=== PATIENT | female | born 1955 | race Caucasian/White ===

== ENCOUNTER → 2019-07-04 | Outpatient (CLI) | payer MEDICARE, OTHER ==
[~2019-07-04] MED LIST: ALPR.25T PO; ATEN-158 PO; CIPR-17 PO; CPR500T PO; ESOM20CA PO; FRSM40T; KCL10CCR; LACT1CAP62 PO; LEVO137T24 PO; LEVO500T69 PO; LVT.15T; METF-380 PO; METR500T PO; MULT1TAB63; OMEP-10; OMEP-10 PO; PRX20T PO; TERB250T42 PO; TRAM-21 PO; TRHC5025; TRIA1CAP4 PO; VERAMYST
== END ==
LOC: RAD 09:49
PROVIDERS: ATTEND Internal Medicine
DX: Z12.31 Encounter for screening mammogram for malignant neoplasm of breast (principal)
CPT/HCPCS: 77063; 77067

== ENCOUNTER → 2019-09-28 | Outpatient (CLI) | payer MEDICARE, OTHER ==
--- NOTE | 2019-09-28 17:53 | Diagnostic Imaging Report ---
INDICATION: Degenerative disc disease. FINDINGS: Frontal, lateral and bilateral oblique views of the lumbar spine demonstrate no fracture or subluxation. Disc space narrowing is present at all levels. This is greatest at L1-L2, L2-L3 and L5-S1. Facet arthropathy is seen at all levels, greatest at L4-L5 and L5-S1. No pars defects are present. IMPRESSION: There is diffuse spondylosis. No acute finding is identified. Dictated by: Dictated on workstation # [id number]
--- NOTE | 2019-09-28 17:54 | Diagnostic Imaging Report ---
INDICATION: Neck pain and low back pain. EXAMINATION: Cervical spine, 09/28/2019. FINDINGS: Five views of the cervical spine. There is marked intervertebral disc space narrowing at C4-C5 and to a lesser degree throughout the remaining cervical spine. Anterior and posterior spurring throughout the entire spine is also noted. There are no significant subluxation. No vertebral body height loss. The prevertebral soft tissues appear unremarkable. There is multilevel diffuse facet hypertrophy at all levels. Visualized lung apices are clear. IMPRESSION: Multilevel severe degenerative disease. Dictated by: Dictated on workstation # [id number]
== END ==
LOC: RAD 16:21
PROVIDERS: ATTEND Internal Medicine
DX: M51.36 Other intervertebral disc degeneration, lumbar region (principal); M47.816 Spondylosis without myelopathy or radiculopathy, lumbar region; M47.812 Spondylosis without myelopathy or radiculopathy, cervical region; M99.01 Segmental and somatic dysfunction of cervical region
CPT/HCPCS: 72050; 72110

== ENCOUNTER → 2019-10-10 | Outpatient (CLI) | payer MEDICARE, OTHER ==
--- NOTE | 2019-10-10 14:56 | Diagnostic Imaging Report ---
PROCEDURE: MR imaging cervical spine without contrast. TECHNIQUE: Multiplanar, multisequence MR imaging of the cervical spine was performed without contrast. INDICATION: Neck pain. FINDINGS: There is straightening of the normal cervical lordosis. The vertebral body heights are well maintained. Prevertebral soft tissues are within normal limits. Posterior fossa is unremarkable. The visualized portions of the spinal cord are normal in signal intensity and morphology. At C2-C3, there is some annular bulging and bilateral uncovertebral joint hypertrophy. There is mild spinal stenosis. There is moderate right and mild left neuroforaminal encroachment. At C3-C4, there is broad-based annular bulging and bilateral uncovertebral joint hypertrophy. There is uhjl-dl-prbnuxdu spinal stenosis. There is moderate left and mild right neuroforaminal encroachment. At C4-C5, there is annular bulging and bilateral uncovertebral joint hypertrophy. There is severe spinal stenosis and moderately severe bilateral neuroforaminal encroachment. At C5-C6, there is annular bulging and bilateral uncovertebral joint hypertrophy. There is moderately severe spinal stenosis and moderate right and oryi-tj-gpxvqquz left neuroforaminal encroachment. At C6-C7, there is annular bulging and left uncovertebral joint hypertrophy. There is qezq-rh-ufukqctl spinal stenosis and pbczrpeu-dm-jmbemz left neuroforaminal encroachment. At C7-T1, there is no spinal or neuroforaminal encroachment. IMPRESSION: Moderately severe diffuse cervical spondylosis and multilevel degenerative disc disease. Dictated by: Dictated on workstation # [id number]
--- NOTE | 2019-10-10 15:14 | Diagnostic Imaging Report ---
PROCEDURE: MRI lumbar spine. TECHNIQUE: Multiplanar, multisequence MRI of the lumbar spine was performed without contrast. INDICATION: Back pain with no known injury. FINDINGS: There is some slight retrolisthesis of L1 on L2 and L2 on L3. The vertebral body heights are relatively well-maintained. There are no acute fractures. The conus medullaris is seen at L1 and is normal in appearance. At T12-L1, there is no spinal or neuroforaminal encroachment. At L1-L2, there is loss of disc height and signal intensity. There is some annular bulging and Modic changes in the endplates. There is no significant spinal stenosis although there is some moderate bilateral neuroforaminal encroachment. At L2-L3, there is loss of disc height and signal intensity. There is minimal annular bulging. There is at least moderate bilateral neuroforaminal encroachment. At L3-L4, there is a left paramedian disc protrusion resulting in slight effacement of the ventral thecal sac. There is also some facet disease with moderate bilateral neuroforaminal encroachment. At L4-L5, there is loss of disc height and signal intensity. There are some Modic changes in the endplates. There is moderate bilateral neuroforaminal encroachment. At L5-S1, there is mild annular bulging. There is mild bilateral neuroforaminal encroachment. The aorta is nonaneurysmal. The kidneys are normal in appearance. IMPRESSION: Diffuse lumbar spondylosis and multilevel degenerative disc disease as described. Dictated by: Dictated on workstation # [id number]
== END ==
LOC: RAD 12:55
PROVIDERS: ATTEND Internal Medicine
DX: M51.36 Other intervertebral disc degeneration, lumbar region (principal); M47.816 Spondylosis without myelopathy or radiculopathy, lumbar region; M47.812 Spondylosis without myelopathy or radiculopathy, cervical region; M50.30 Other cervical disc degeneration, unspecified cervical region; M99.01 Segmental and somatic dysfunction of cervical region
CPT/HCPCS: 72141; 72148

== ENCOUNTER → 2020-10-11 | Outpatient (CLI) | payer MEDICARE, OTHER ==
--- NOTE | 2020-10-11 13:14 | Diagnostic Imaging Report ---
PROCEDURE: MRI lumbar spine. TECHNIQUE: Multiplanar, multisequence MRI of the lumbar spine was performed without contrast. DATE: October 11, 2020. COMPARISON: Lumbar spine October 10, 2019. INDICATION: 65-year-old female, low back pain extending down the right lower extremity. FINDINGS: There is normal lumbosacral spine alignment. There is a benign L1 vertebral body hemangioma. There is no focal concerning bone lesion. There is moderate to severe disc height loss at L1-L2 and L2-L3. There is mild disc loss at L3-L4 and L4-L5. There is moderate disc height loss at L5-S1. There are multilevel Modic endplate degenerative related changes of the lumbar spine. The visualized cord and conus medullaris is unremarkable and terminates at the L1 level. L1-L2: There is diffuse disc bulge. There is moderate narrowing of the right lateral recess and mild narrowing of the left lateral recess. The facet joints and ligamentum flavum are unremarkable. There is moderate right foraminal narrowing. There is very mild spinal canal stenosis. L2-L3: There is diffuse disc bulge. There are mild bilateral facet degenerative changes. There is mild to moderate narrowing of the bilateral lateral recesses. There is moderate bilateral foraminal narrowing. There is mild spinal canal stenosis. L3-L4: There is diffuse disc bulge. There is moderate narrowing of the bilateral lateral recesses. There are bilateral facet degenerative changes. There is moderate right and mild left foraminal narrowing. There is moderate to severe spinal canal stenosis. L4-L5: There is diffuse disc bulge. There are advanced facet degenerative changes with ligamentum flavum hypertrophy. There is severe narrowing of the bilateral lateral recesses. There is moderate bilateral foraminal narrowing. There is severe spinal canal stenosis. L5-S1: There is diffuse disc bulge. The facet joints and ligamentum flavum are unremarkable. There is no foraminal narrowing. There is no spinal canal stenosis. IMPRESSION: 1. Multilevel disc and facet degenerative changes of the lumbar spine as described in detail level by level above. 2. No identified compression deformity, fracture, or focal concerning bone lesion. Dictated by: Dictated on workstation # [id number]
== END ==
LOC: RAD 10:15
PROVIDERS: ATTEND Pediatrics
DX: M47.816 Spondylosis without myelopathy or radiculopathy, lumbar region (principal); M51.26 Other intervertebral disc displacement, lumbar region; M51.36 Other intervertebral disc degeneration, lumbar region; M48.061 Spinal stenosis, lumbar region without neurogenic claudication; D18.09 Hemangioma of other sites; M24.28 Disorder of ligament, vertebrae
CPT/HCPCS: 72148

== ENCOUNTER 2021-01-16 08:29 | Outpatient (CLI) | payer MEDICARE, OTHER ==
[~2021-01-16] VITALS: Ht 170.2 cm; Wt 92.3 kg
[2021-01-17] MEDS ORDERED: METF-399 PO (08:56)
[2021-01-17] MEDS ORDERED: LEVO125C4 PO (08:56)
[2021-01-17] MEDS ORDERED: NF-ESOM40C PO (08:56)
[2021-01-17] MEDS ORDERED: ALPR0.5T7 PO (08:56)
[2021-01-17] MEDS ORDERED: ATEN50TA PO (08:56)
[2021-01-17] MEDS ORDERED: MELO15TA39 PO (08:56)
[2021-01-17] MEDS ORDERED: POLY17PO6 PO (08:56)
[2021-01-17] MEDS ORDERED: FLUT16SP22 NS (08:56)
[2021-01-17] MEDS ORDERED: TETR15DR49 OP (08:56)
== END 2021-01-17 12:16 | disposition home or self-care (01) ==
LOC: PREOP 08:29
PROVIDERS: ATTEND Surgery
DX: Z01.818 Encounter for other preprocedural examination (principal)

== ENCOUNTER 2021-01-23 11:01 | Day surgery (SDC) | payer MEDICARE, OTHER ==
[~2021-01-23] VITALS: Ht 170.2 cm; Wt 92.3 kg
[~2021-01-23 11:01] MED LIST changes: +ALPR0.5T7 PO; +ATEN50TA PO; +FLUT16SP22 NS; +LEVO125C4 PO; +MELO15TA39 PO; +METF-399 PO; +NF-ESOM40C PO; +POLY17PO6 PO; +TETR15DR49 OP
[2021-01-23] MEDS ORDERED: LACTATED RINGERS 1,000 ML IV ONE (11:11)
[2021-01-23] MEDS ORDERED: LACTATED RINGERS 1,000 ML IV STA (11:20)
[2021-01-23 11:35] VITALS: BP 157/79
--- NOTE | 2021-01-23 12:13 | Progress Note-Pre Operative ---
Pre-Operative Progress Note H&P Reviewed The H&P was reviewed, patient examined and no changes noted. Date Seen by Provider: Jan 23, 2021 Time Seen by Provider: 12:13 Date H&P Reviewed: Jan 23, 2021 Time H&P Reviewed: 12:13 Pre-Operative Diagnosis: hx diverticulitis, llq abd pain ASAF GAITAN DO Jan 23, 2021 12:13
[2021-01-23] MEDS ORDERED: MIDAZOLAM 2 MG/2 ML (VERSED) VIAL ONE (12:29)
[2021-01-23] MEDS ORDERED: PROPOFOL INJECTION 50 ML IV ONE (12:29)
--- NOTE | 2021-01-23 13:02 | Progress Note-Post Operative ---
Post-Operative Progess Note Surgeon (s)/Stringed Instrument Repairer (s) Surgeon ASAF GAITAN DO Stringed Instrument Repairer: na Pre-Operative Diagnosis hx diverticulitis, llq abd pain Post-Operative Diagnosis Diverticulosis Procedure & Operative Findings Date of Procedure 01/23/21 Procedure Performed/Findings Colonoscopy Anesthesia Type Per CONCRETER Estimated Blood Loss Estimated blood loss (mL): None Specimens/Packing Specimens Removed N/A ASAF GAITAN DO Jan 23, 2021 13:02
--- NOTE | 2021-01-23 13:04 | Anesthesia-General Post-Op ---
MAC Patient Condition Mental Status/LOC: Same as Preop Cardiovascular: Satisfactory Nausea/Vomiting: Absent Respiratory: Satisfactory Pain: Controlled Complications: Absent Post Op Complications Complications None Follow Up Care/Instructions Patient Instructions None needed. Anesthesiology Discharge Order Discharge Order Patient is doing well, no complaints, stable vital signs, no apparent adverse anesthesia problems. No complications reported per nursing. JEANETTE STONE CRNA Jan 23, 2021 13:04
--- NOTE | 2021-01-23 13:04 | Discharge Inst-Simple/Standard ---
Discharge Inst-Standard Patient Instructions/Follow Up Plan of Care/Instructions/FU: Natan on as needed. Need repeat colonoscopy in 10 years unless family history of colon cancer or personal history of colon polyps which would be 5 years. Any issues before that be seen at that time. Activity as Tolerated: Yes Discharge Diet: Regular Diet (high fiber) ASAF GAITAN DO Jan 23, 2021 13:04
[2021-01-23 13:05] VITALS: BP 147/78
[2021-01-23 13:10] VITALS: BP 141/76
[2021-01-23 13:40] VITALS: BP 148/78
[2021-01-23 13:50] VITALS: BP 148/78
--- NOTE | 2021-01-23 18:30 | OPERATIVE REPORT ---
DATE OF SERVICE: 01/23/2021 PREOPERATIVE DIAGNOSES: Left lower quadrant abdominal pain, history of diverticulosis. POSTOPERATIVE DIAGNOSIS: Diverticulosis. PROCEDURE: Colonoscopy. SURGEON: Asaf Gama DO ANESTHESIA: Per RETAIL COORDINATOR. ESTIMATED BLOOD LOSS: None. COMPLICATIONS: None. INDICATIONS: The patient is a 65-year-old female with history of diverticulitis and left lower quadrant abdominal pain. She understands risks and benefits of procedure and wishes to proceed. Consent was signed in the chart. DESCRIPTION OF PROCEDURE: The patient was taken to the endoscopy suite, placed in left lateral recumbent position. Timeout was performed. A digital rectal exam was performed. No palpable polyps, masses or ulcerations. Scope was inserted in the rectum and advanced all the way to cecum with minimal difficulty. Prep was adequate. Scope was slowly retracted back. There were no polyps, masses or ulcerations within the cecum, ascending, transverse, descending and sigmoid colon. Throughout the colon, moderate amount of diverticulosis present. Scope was then continuously retracted back into the rectum, where it was also retroflexed noting no other pathology. Scope was returned to its normal position, slowly withdrawn until completely removed. The patient tolerated procedure well without any complications. She was taken to recovery room in stable condition. RECOMMENDATIONS: The patient will need repeat colonoscopy in 10 years unless family history of colon cancer or personal history of colon polyps, which would then be 5 years. Any issues before that be seen at that time. Recommend high fiber diet due to diverticulosis. Job ID: [id number] DocumentID: [id number] Dictated Date: 01/23/2021 13:06:07 Precision Assembler Bench Date: 01/23/2021 18:29:39 Dictated By: ASAF GAMA DO
== END 2021-01-23 13:50 | disposition home or self-care (01) ==
LOC: ENDO 11:01
PROVIDERS: ATTEND Surgery
DX: K57.30 Diverticulosis of large intestine without perforation or abscess without bleeding (principal); I10 Essential (primary) hypertension; K21.9 Gastro-esophageal reflux disease without esophagitis; E11.9 Type 2 diabetes mellitus without complications; F32.A Depression, unspecified; F41.9 Anxiety disorder, unspecified; E07.9 Disorder of thyroid, unspecified; Z87.19 Personal history of other diseases of the digestive system; Z79.899 Other long term (current) drug therapy; Z79.1 Long term (current) use of non-steroidal anti-inflammatories (NSAID); Z79.84 Long term (current) use of oral hypoglycemic drugs; Z79.890 Hormone replacement therapy; Z87.891 Personal history of nicotine dependence; Z90.49 Acquired absence of other specified parts of digestive tract

== ENCOUNTER 2021-10-13 19:02 | Emergency (ER) | payer MEDICARE, OTHER ==
[~2021-10-13] VITALS: Ht 170.2 cm; Wt 90.7 kg
[2021-10-13 19:23] LABS: BASOPHILS % (AUTO) 1 % (0-10); EOSINOPHILS # (AUTO) 0.1 10^3/uL (0.0-0.3); EOSINOPHILS % (AUTO) 1 % (0-10); HEMATOCRIT 39 % (35-52); LYMPHOCYTES # (AUTO) 2.2 10^3/uL (1.0-4.0); LYMPHOCYTES % (AUTO) 31 % (12-44); MEAN CORPUSCULAR HEMOGLOBIN 30 pg (25-34); MEAN CORPUSCULAR HGB CONC 34 g/dL (32-36); MEAN CORPUSCULAR VOLUME 89 fL (80-99); MEAN PLATELET VOLUME 10.4 fL (9.0-12.2); MONOCYTES # (AUTO) 0.5 10^3/uL (0.0-1.0); MONOCYTES % (AUTO) 6 % (0-12); NEUTROPHILS # (AUTO) 4.4 10^3/uL (1.8-7.8); NEUTROPHILS % (AUTO) 61 % (42-75); PLATELET COUNT 277 10^3/uL (130-400); WHITE BLOOD COUNT 7.3 10^3/uL (4.3-11.0)
[2021-10-13 19:30] LABS: INR 0.9 (0.8-1.4); PARTIAL THROMBOPLASTIN TIME 31 SEC (24-35); PROTHROMBIN TIME PATIENT 12.3 SEC (12.2-14.7)
[2021-10-13] MEDS ORDERED: NITROGLYCERIN 0.4 MG SL TABS BTL 25'S SL PRN (19:30)
[2021-10-13] MEDS ORDERED: ASPIRIN 81 MG CHEW (CHILDREN'S ASA) PO ONE (19:30)
[2021-10-13 19:41] LABS: ALBUMIN 4.3 GM/DL (3.2-4.5); BILIRUBIN,TOTAL 0.5 MG/DL (0.1-1.0); CALCIUM 9.5 MG/DL (8.5-10.1); CREATININE SERUM 1.05 MG/DL (0.60-1.30); MAGNESIUM 1.7 MG/DL (1.6-2.4); POTASSIUM 4.1 MMOL/L (3.6-5.0); TOTAL PROTEIN 7.8 GM/DL (6.4-8.2)
--- NOTE | 2021-10-13 20:41 | Diagnostic Imaging Report ---
CLINICAL INDICATIONS: Patient with chest pain. EXAM: Portable chest x-ray upright view. COMPARISON: None. FINDINGS: Lungs/pleura: Lungs are clear. There is no pneumothorax. There is no pleural effusion. Mediastinum: Unremarkable. Pulmonary vasculature: Unremarkable. Heart: Unremarkable. Bones/extrathoracic soft tissue: Unremarkable. IMPRESSION: There is no radiographic evidence of acute cardiopulmonary process. Dictated by: Dictated on workstation # [id number]
--- NOTE | 2021-10-13 20:50 | ED Chest Pain ---
General Chief Complaint: Chest Pain Stated Complaint: CHEST PAIN Nursing Triage Note: PT AMB TO ED BY POV WITH C/O CP BEGINNING THIS MORNING THAT RADIATES THROUGH BACK BETWEEN SHOULDER BLADES, WORSE WITH DEEP BREATHING. PT ALSO C/O MCDERMOTT. REPORTS CP WAS 6/10 AND CONTINUOUS, DENIES CP AT THIS TIME. DENIES SOB, N/V/D. Source: patient Exam Limitations: no limitations History of Present Illness Date Seen by Provider: Oct 13, 2021 Time Seen by Provider: 19:04 Allergies and Home Medications Allergies Coded Allergies: terbinafine (Unverified Allergy, Unknown, 01/17/21) Patient Home Medication List Alprazolam (Alprazolam) 0.5 Mg Tablet, 0.5 MG PO PRN, (Reported) Entered as Reported by: SAMAN GLORIA on 01/17/21855 Atenolol (Atenolol) 50 Mg Tablet, 50 MG PO DAILY, (Reported) Entered as Reported by: SAMAN GLORIA on 01/17/21855 Esomeprazole Magnesium (Nexium) 40 Mg Cap, 40 MG PO DAILY, (Reported) Entered as Reported by: SAMAN GLORIA on 01/17/21855 Fluticasone Propionate (Fluticasone Propionate) 16 Gm [place].susp, 16 GM NS DAILY, (Reported) Entered as Reported by: SAMAN GLORIA on 01/17/21855 Levothyroxine Sodium (Levothyroxine) 125 Mcg Capsule, 125 MCG PO DAILY, (Reported) Entered as Reported by: SAMAN GLORIA on 01/17/21855 Meloxicam (Meloxicam) 15 Mg Tablet, 15 MG PO DAILY, (Reported) Entered as Reported by: SAMAN GLORIA on 01/17/21855 Metformin HCl (Metformin HCl) 1,000 Mg Tablet, 1,000 MG PO DAILY, (Reported) Entered as Reported by: SAMAN GLORIA on 01/17/21855 Polyethylene Glycol 3350 (Miralax) 17 Gm Powd.pack, 17 GM PO DAILY, (Reported) Entered as Reported by: SAMAN GLORIA on 01/17/21855 Tetrahydrozoline HCl (Tetrahydrozoline HCl) 15 Ml Drops, 15 ML OP UD, (Reported) Entered as Reported by: SAMAN GLORIA on 01/17/21855 Past Mdldywn-Jhrxmo-Qqczgc Hx Patient Social History Tobacco Use?: No Use of E-Cig and/or Vaping dev: No Substance use?: No Alcohol Use?: Yes Alcohol type: Beer, Wine Alcohol Frequency: Several times a month Pt feels they are or have been: No Immunizations Up To Date Influenza Vaccine Up-to-Date: No; Not Current First/Initial COVID19 Vaccinat: APRIL 2020 Second COVID19 Vaccination Benjy: MAY 2020 Seasonal Allergies Seasonal Allergies: Yes Past Medical History Surgery/Hospitalization HX: HTN, HYPOTHYROID Surgeries: Yes (sadie,hysterectomy,leg fracture,cataract) Eye Surgery, Gallbladder, Hysterectomy, Orthopedic Respiratory: No Cardiac: Yes Hypertension Neurological: No Reproductive Disorders: No Sexually Transmitted Disease: No Genitourinary: No Gastrointestinal: Yes Gastroesophageal Reflux, Diverticulosis Musculoskeletal: Yes Fractures Endocrine: Yes Hypothyroidsim, Diabetes, Non-Insulin dep HEENT: No Cancer: No Psychosocial: Yes Anxiety, Depression Integumentary: No Blood Disorders: No Adverse Reaction/Blood Tranf: No Family Medical History Cancer 03 FATHER (ESOPHAGEAL) Family history: Alzheimer's disease 03 MOTHER Family history: Glaucoma 03 MOTHER (NO GLAUCOMA MOM BECAME BLIND LATER IN LIFE UNKNOWN CAUSE) No Family History of: Abdominal aortic aneurysm Robeson's disease Alcoholism Aphasia Cancer of colon Cataract Chest pain Congenital heart disease Congestive heart failure Cystic fibrosis Dementia Dysphagia Family history: Allergy Family history: Arthritis Family history: Asthma Family history: Breast disease Family history: Cardiovascular disease Family history: Coronary thrombosis Family history: Diabetes mellitus Family history: Gastrointestinal disease Family history: Hypertension Family history: Osteoporosis Family history: Thyroid disorder Headache Hearing loss Heart disease Hereditary disease History of - anemia History of - disorder History of - respiratory disease History of drug abuse Human immunodeficiency virus (HIV) seropositivity Hypercholesterolemia Infertile Kidney disease Malignant neoplasm of lung Myocardial infarction Parkinson's disease Prostate cancer Psychotic disorder Seizure disorder Stroke Tuberculosis Visual impairment Cancer Physical Exam Vital Signs Vital Signs - First Documented 10/13/21 19:05 Temp 36.3 Pulse 63 Resp 14 B/P (MAP) 209/107 (141) Pulse Ox 99 O2 Delivery Room Air Capillary Refill : Less Than 3 Seconds Height, Weight, BMI Height: 5'7.00" Weight: 210lbs. 0.6oz. 95.700743nv; 31.00 BMI Method:Stated Progress/Results/Core Measures Results/Orders Lab Results Laboratory Tests Test 10/13/21 19:07 10/13/21 19:15 10/13/21 21:12 Range/Units White Blood Count 7.3 4.3-11.0 10^3/uL Red Blood Count 4.33 3.80-5.11 10^6/uL Hemoglobin 13.0 11.5-16.0 g/dL Hematocrit 39 35-52 % Mean Corpuscular Volume 89 80-99 fL Mean Corpuscular Hemoglobin 30 25-34 pg Mean Corpuscular Hemoglobin Concent 34 32-36 g/dL Red Cell Distribution Width 12.5 10.0-14.5 % Platelet Count 277 130-400 10^3/uL Mean Platelet Volume 10.4 9.0-12.2 fL Immature Granulocyte % (Auto) 0 % Neutrophils (%) (Auto) 61 42-75 % Lymphocytes (%) (Auto) 31 12-44 % Monocytes (%) (Auto) 6 0-12 % Eosinophils (%) (Auto) 1 0-10 % Basophils (%) (Auto) 1 0-10 % Neutrophils # (Auto) 4.4 1.8-7.8 10^3/uL Lymphocytes # (Auto) 2.2 1.0-4.0 10^3/uL Monocytes # (Auto) 0.5 0.0-1.0 10^3/uL Eosinophils # (Auto) 0.1 0.0-0.3 10^3/uL Basophils # (Auto) 0.0 0.0-0.1 10^3/uL Immature Granulocyte # (Auto) 0.0 0.0-0.1 10^3/uL Prothrombin Time 12.3 12.2-14.7 SEC INR Comment 0.9 0.8-1.4 Activated Partial Thromboplast Time 31 24-35 SEC D-Dimer < 0.27 0.00-0.49 UG/ML Sodium Level 141 135-145 MMOL/L Potassium Level 4.1 3.6-5.0 MMOL/L Chloride Level 105 98-107 MMOL/L Carbon Dioxide Level 23 21-32 MMOL/L Anion Gap 13 5-14 MMOL/L Blood Urea Nitrogen 23 H 7-18 MG/DL Creatinine 1.05 0.60-1.30 MG/DL Estimat Glomerular Filtration Rate 58 BUN/Creatinine Ratio 22 Glucose Level 95 70-105 MG/DL Calcium Level 9.5 8.5-10.1 MG/DL Corrected Calcium 9.3 8.5-10.1 MG/DL Magnesium Level 1.7 1.6-2.4 MG/DL Total Bilirubin 0.5 0.1-1.0 MG/DL Aspartate Amino Transf (AST/SGOT) 14 5-34 U/L Alanine Aminotransferase (ALT/SGPT) 16 0-55 U/L Alkaline Phosphatase 65 40-136 U/L Myoglobin 47.3 10.0-92.0 NG/ML Troponin I < 0.028 < 0.028 <0.028 NG/ML Total Protein 7.8 6.4-8.2 GM/DL Albumin 4.3 3.2-4.5 GM/DL Thyroid Stimulating Hormone (TSH) 4.79 0.35-4.94 UIU/ML Free Thyroxine 1.03 0.70-1.48 NG/DL Influenza Type A (RT-PCR) Not Detected Not Detecte Influenza Type B (RT-PCR) Not Detected Not Detecte SARS-CoV-2 RNA (RT-PCR) Not Detected Not Detecte My Orders Orders - HAJA HDZ MD Ekg Tracing (10/13/21 19:04) Cbc With Automated Diff (10/13/21 19:11) Magnesium (10/13/21 19:11) Chest 1 View, Ap/Pa Only (10/13/21 19:11) Comprehensive Metabolic Panel (10/13/21 19:11) Myoglobin Serum (10/13/21 19:11) Protime With Inr (10/13/21 19:11) Partial Thromboplastin Time (10/13/21 19:11) O2 (10/13/21 19:11) Monitor-Rhythm Ecg Trace Only (10/13/21 19:11) Lipid Panel (10/14/21 06:00) Ed Iv/Invasive Line Start (10/13/21 19:11) Troponin I [place] (10/13/21 19:11) Covid 19 Inhouse Test (10/13/21 19:11) Influenza A And B By Pcr (10/13/21 19:11) Nitroglycerin 0.4 Mg Btl 25's (Nitrostat (10/13/21 19:30) Aspirin Chewable Tablet (Baby Aspirin Ch (10/13/21 19:30) Thyroid Stimulating Hormone (10/13/21 20:50) Troponin I [place] (10/13/21 21:10) Free T4 (Free Thyroxine) (10/13/21 20:51) Fibrin Degradation Products (10/13/21 19:07) Ondansetron Injection (Zofran Injectio (10/13/21 21:15) Lidocaine 2% Viscous 15 Ml (Xylocaine Vi (10/13/21 21:15) Antacid Suspension (Mylanta Suspension (10/13/21 21:15) Ketorolac Injection (Toradol Injection) (10/13/21 22:15) Gabapentin Capsule/Tablet (Neurontin Cap (10/13/21 23:36) Medications Given in ED Current Medications Medications Dose Ordered Sig/Manuela Route Start Time Stop Time Status Last Admin Dose Admin Al Hydrox/Mg Hydrox/Simethicone 30 ml ONCE ONCE PO 10/13/21 21:15 10/13/21 21:16 DC 10/13/21 21:19 30 ML Aspirin 324 mg ONCE ONCE PO 10/13/21 19:30 10/13/21 19:31 DC 10/13/21 19:22 324 MG Ketorolac Tromethamine 15 mg ONCE ONCE IVP 10/13/21 22:15 10/13/21 22:16 DC 10/13/21 22:47 15 MG Lidocaine HCl 15 ml ONCE ONCE PO 10/13/21 21:15 10/13/21 21:16 DC 10/13/21 21:19 15 ML Nitroglycerin 0.4 mg UD PRN SL 10/13/21 19:30 10/13/21 19:22 0.4 MG Ondansetron HCl 4 mg ONCE ONCE IVP 10/13/21 21:15 10/13/21 21:16 DC 10/13/21 21:19 4 MG Vital Signs/I&O 10/13/21 19:05 Temp 36.3 Pulse 63 Resp 14 B/P (MAP) 209/107 (141) Pulse Ox 99 O2 Delivery Room Air Blood Pressure Mean: 141 Progress Progress Note : Time: 23:44 Progress Note GI cocktail did not resolve her pain. Nitroglycerin did not seem to improve her pain much either. Toradol seemed to improve her pain in the back but did not significantly improve the discomfort in her chest. Pain is reproducible to palpation and worse with inspiration. D-dimer was negative and CT angiogram was therefore not pursued. It is possible she is having some radicular pain associated with her degenerative disc disease. I am giving her a trial of gabapentin, and she can fill a prescription if this is helpful. I did make her aware that heart disease cannot be completely excluded as a possibility in the ER, and follow-up is necessary. Return precautions reviewed. Initial ECG Impression Date: Oct 13, 2021 Initial ECG Impression Time: 19:09 Initial ECG Rate: 59 Initial ECG Rhythm: Normal Sinus Comment Sinus rhythm with no ST elevation or depression. No abnormal intervals or axis deviation. Diagnostic Imaging Diagonstic Imaging: Xray Plain Films/CT/US/NM/MRI: chest Comments Chest x-ray viewed by me and report reviewed. See report below: NAME: BASSEM [facility] REC#: [id number] PT STATUS: REG ER : 1955 PHYSICIAN: HAJA HDZ MD ADMIT DATE: 10/13/21/ER Draft Date of Exam:10/13/21 CHEST 1 VIEW, AP/PA ONLY CLINICAL INDICATIONS: Patient with chest pain. EXAM: Portable chest x-ray upright view. COMPARISON: None. FINDINGS: Lungs/pleura: Lungs are clear. There is no pneumothorax. There is no pleural effusion. Mediastinum: Unremarkable. Pulmonary vasculature: Unremarkable. Heart: Unremarkable. Bones/extrathoracic soft tissue: Unremarkable. IMPRESSION: There is no radiographic evidence of acute cardiopulmonary process. Dictated on workstation # [id number] Dict: 10/13/212037 Trans: 10/13/212040 [facility] [id number] Interpreted by: DONNA BOURNE MD Departure Impression Primary Impression: Atypical chest pain Additional Impression: Episode of hypertension Disposition: HOME, SELF-CARE Condition: Improved Departure-Patient Inst. Decision time for Depature: 23:43 Referrals: SEEMA QUINTERO DO (PCP/Family) Primary Care Physician Patient Instructions: Chest Pain, High Blood Pressure ED, Radiculopathy Add. Discharge Instructions: Until otherwise instructed, take aspirin 81 mg daily. Follow-up with your primary care provider soon as possible. Please call tomorrow for an appointment. Heart disease cannot be completely excluded as a possibility during your ER work-up. Therefore follow-up is very important. You should also return to the emergency room if you develop worsening symptoms of chest pain, shortness of breath, lightheadedness, etc. It is possible some of your pain may be related to the degenerative disc disease in your back. You may have radiating pain to other parts of your body called radicular pain. This may require further evaluation by your primary care provider also. You may continue taking ekvr-mcf-rfyshye medications such as Tylenol and/or ibuprofen for your pain. For pain not controlled by uzgy-ymg-euiwmon medica tions, you may try the gabapentin (Neurontin) as prescribed. If the trial of gabapentin you took in the emergency room was not helpful, you do not need to fill this prescription. Please be advised gabapentin may cause drowsiness. Use with caution. Call with questions or concerns. All discharge instructions reviewed with patient and/or family. Voiced understanding. Scripts Gabapentin (Neurontin) 300 Mg Capsule 300 MG PO BID PRN for PAIN-BREAKTHROUGH, #10 CAP Prov: HAJA HDZ MD 10/13/21 Copy Copies To 1: SEEMA QUINTERO JOSHUA T MD Oct 13, 2021 20:50
[2021-10-13] MEDS ORDERED: ONDANSETRON 4 MG/2 ML (SDV) Z0FRAN IVP ONE (21:15)
[2021-10-13] MEDS ORDERED: LIDOCAINE 2% VISCOUS 15 ML UDC PO ONE (21:15)
[2021-10-13] MEDS ORDERED: ANTACID SUSP 30 ML UDC (MYLANTA) PO ONE (21:15)
[2021-10-13 21:31] LABS: FIBRIN DEGRADATION PRODUCTS < 0.27 UG/ML (0.00-0.49)
[2021-10-13 21:40] LABS: FREE T4 (FREE THYROXINE) 1.03 NG/DL (0.70-1.48)
[2021-10-13] MEDS ORDERED: KETOROLAC 30 MG/ML VIAL IVP ONE (22:15)
[2021-10-13] MEDS ORDERED: GABAPENTIN 300 MG (NEURONTIN) CAP PO STA (23:36)
[2021-10-13] MEDS ORDERED: GABA300C PO (23:48)
[2021-10-14] VITALS: BP 143/96
== END 2021-10-14 00:01 | disposition home or self-care (01) ==
LOC: EDUNIT# 19:02 → ER 19:03
DX: I10 Essential (primary) hypertension (principal); Z20.822 Contact with and (suspected) exposure to COVID-19
CPT/HCPCS: 36415; 71045; 80053; 83735; 83874; 84439; 84443; 84484; 85025; 85379; 85610; 85730; 87636; 93005; 93041

== ENCOUNTER 2022-02-05 21:21 | Emergency (ER) | payer MEDICARE, OTHER ==
[~2022-02-05] VITALS: Ht 170.2 cm; Wt 88.0 kg
[~2022-02-05 21:21] MED LIST changes: +GABA300C PO
[2022-02-05 21:30] VITALS: BP 137/81
--- NOTE | 2022-02-05 22:58 | ED Abdominal Pain ---
General Chief Complaint: Abdominal/GI Problems Stated Complaint: CHILLS,ABD PAIN,ABD BLOATING Nursing Triage Note: PT AMB TO TRIAGE W C/O LEFT SIDED ABD PAIN/CRAMPING, BACK PAIN, CHILLS, BELIEVES SHE IS HAVING A DIVERTICULITIS FLARE UP SX 02/02/22. PT WAS SEEN AT [facility] TODAY, NEGATIVE FOR COVID AND FLU. PT DX W VIRAL INFECTION. PT A&OX4, STATES SHE'S BEEN HOSPITALIZED D/T DIVERTICULITIS BEFORE AND IS CONCERNED SHE MAY NEED AN ABX TONIGHT TO PREVENT HOSPITALIZATION. Source of Information: Patient Exam Limitations: No Limitations History of Present Illness Date Seen by Provider: Feb 05, 2022 Time Seen by Provider: 22:58 Initial Comments Patient is a 66-year-old female with a history of diverticular disease diagnosed by colonoscopy, several bouts of acute diverticulitis. She had 1 bout several years ago which required hospitalization. She states over the last week, traveling for the holidays she has felt unwell, laid in the bed a couple of days at the beginning of the week Wednesday. No fevers. Some body aches. No chest pain or shortness of breath or productive cough. In the last 24 hours she developed some left lower quadrant abdominal pain which concerned her for diverticulitis. She has had low-grade fever at home, denies bloody stools or loose stools. No difficulty with urination, dysuria urgency or frequency. She has had no prior surgeries related to diverticular disease. She was seen at the [facility] walk-in earlier today and tested for flu and COVID these were negative. All other review of systems reviewed and negative except as stated. Timing/Duration: 4-5 Days ("sick" - last 2 days LLQ hurting) Severity/Quality: Cramping Location: LLQ Radiation: Back Activities at Onset: None Modifying Factors: Worsens With Movement; Improves With Resting Associated Symptoms: Fever/Chills (chills) Allergies and Home Medications Allergies Coded Allergies: terbinafine (Unverified Adverse Reaction, Unknown, Palpitations, 10/22/21) Patient Home Medication List Home Medication List Reviewed: Yes Alprazolam (Alprazolam) 0.5 Mg Tablet, 0.5 MG PO PRN, (Reported) Entered as Rep[place] [address] Atenolol (Atenolol) 50 Mg Tablet, 50 MG PO DAILY, (Reported) Entered as Reported by: SAMAN GLORIA on 01/17/21855 Esomeprazole Magnesium (Nexium) 40 Mg Cap, 40 MG PO DAILY, (Reported) Entered as Reported by: SAMAN GLORIA on 01/17/21855 Fluticasone Propionate (Fluticasone Propionate) 16 Gm [place].susp, 16 GM NS DAILY, (Reported) Entered as Reported by: SAMAN GLORIA on 01/17/21855 Gabapentin (Neurontin) 300 Mg Capsule, 300 MG PO BID PRN for PAIN-BREAKTHROUGH Prescribed by: HAJA EATON on 10/13/212347 Hydrocodone/Acetaminophen (Hydrocodone-Acetamin 5-325 mg) 5 Mg-325 Mg Tablet, 1 TAB PO Q6H PRN for PAIN-MODERATE (5-7) Prescribed by: ROSSANA LUTZ on 02/06/2222 Levothyroxine Sodium (Levothyroxine) 125 Mcg Capsule, 125 MCG PO DAILY, (Reported) Entered as Reported by: SAMAN GLORIA on 01/17/21855 Meloxicam (Meloxicam) 15 Mg Tablet, 15 MG PO DAILY, (Reported) Entered as Reported by: SAMAN GLORIA on 01/17/21855 Metformin HCl (Metformin HCl) 1,000 Mg Tablet, 1,000 MG PO DAILY, (Reported) Entered as Reported by: SAMAN GLORIA on 01/17/21855 Metronidazole (Metronidazole) 500 Mg Tablet, 500 MG PO TID Prescribed by: ROSSANA LUTZ on 02/06/2221 Polyethylene Glycol 3350 (Miralax) 17 Gm Powd.pack, 17 GM PO DAILY, (Reported) Entered as Reported by: SAMAN GLORIA on 01/17/21855 Tetrahydrozoline HCl (Tetrahydrozoline HCl) 15 Ml Drops, 15 ML OP UD, (Reported) Entered as Reported by: SAMAN GLORIA on 01/17/21855 Review of Systems Review of Systems Constitutional: see HPI EENTM: No Symptoms Reported Respiratory: Cough (mild nonproductive) Cardiovascular: No Symptoms Reported Gastrointestinal: Abdominal Pain; Denies Diarrhea, Denies Nausea, Denies Rectal Bleeding Genitourinary: No Symptoms Reported Musculoskeletal: no symptoms reported Skin: no symptoms reported All Other Systems Reviewed Negative Unless Noted: Yes Past Vlpxbgl-Rinzzi-Ttayjl Hx Patient Social History Tobacco Use?: No Use of E-Cig and/or Vaping dev: No Substance use?: No Alcohol Use?: Yes Alcohol Frequency: Once in a while Immunizations Up To Date Influenza Vaccine Up-to-Date: No; Not Current First/Initial COVID19 Vaccinat: APRIL 2020 Second COVID19 Vaccination Benjy: MAY 2020 Third COVID19 Vaccination Date: NONE 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 Seasonal Allergies Seasonal Allergies: Yes Past Medical History Surgery/Hospitalization HX: HTN, HYPOTHYROID, DIVERTICULITIS Surgeries: Yes (sadie,hysterectomy,leg fracture,cataract) Eye Surgery, Gallbladder, Hysterectomy, Orthopedic Respiratory: No Cardiac: Yes Hypertension Neurological: No Reproductive Disorders: No Sexually Transmitted Disease: No Genitourinary: No Gastrointestinal: Yes Gastroesophageal Reflux, Diverticulosis Musculoskeletal: Yes Chronic Back Pain, Fractures Endocrine: Yes Hypothyroidsim, Diabetes, Non-Insulin dep HEENT: No Cancer: No Psychosocial: Yes Anxiety, Depression Integumentary: No Blood Disorders: No Adverse Reaction/Blood Tranf: No Family Medical History Cancer 03 FATHER (ESOPHAGEAL) Family history: Alzheimer's disease 03 MOTHER Family history: Glaucoma 03 MOTHER (NO GLAUCOMA MOM BECAME BLIND LATER IN LIFE UNKNOWN CAUSE) No Family History of: Abdominal aortic aneurysm Joaquim's disease Alcoholism Aphasia Cancer of colon Cataract Chest pain Congenital heart disease Congestive heart failure Cystic fibrosis Dementia Dysphagia Family history: Allergy Family history: Arthritis Family history: Asthma Family history: Breast disease Family history: Cardiovascular disease Family history: Coronary thrombosis Family history: Diabetes mellitus Family history: Gastrointestinal disease Family history: Hypertension Family history: Osteoporosis Family history: Thyroid disorder Headache Hearing loss Heart disease Hereditary disease History of - anemia History of - disorder History of - respiratory disease History of drug abuse Human immunodeficiency virus (HIV) seropositivity Hypercholesterolemia Infertile Kidney disease Malignant neoplasm of lung Myocardial infarction Parkinson's disease Prostate cancer Psychotic disorder Seizure disorder Stroke Tuberculosis Visual impairment Cancer Physical Exam Vital Signs Vital Signs - First Documented 02/05/22 21:30 Temp 38.0 Pulse 82 Resp 20 B/P (MAP) 137/81 (99) Pulse Ox 98 O2 Delivery Room Air Capillary Refill : Less Than 3 Seconds Height/Weight/BMI Height: 5'7.00" Weight: 210lbs. 0.6oz. [id number]; 30.00 BMI Method:Stated General Appearance: WD/WN, no apparent distress HEENT: PERRL/EOMI Respiratory: lungs clear, normal breath sounds, no respiratory distress, no accessory muscle use Cardiovascular: regular rate, rhythm Gastrointestinal: soft, tenderness (epigastrum and LLQ) Progress/Results/Core Measures Results/Orders Lab Results Laboratory Tests Test 02/05/22 23:15 02/05/22 23:18 Range/Units White Blood Count 8.2 4.3-11.0 10^3/uL Red Blood Count 4.20 3.80-5.11 10^6/uL Hemoglobin 12.7 11.5-16.0 g/dL Hematocrit 38 35-52 % Mean Corpuscular Volume 91 80-99 fL Mean Corpuscular Hemoglobin 30 25-34 pg Mean Corpuscular Hemoglobin Concent 33 32-36 g/dL Red Cell Distribution Width 12.0 10.0-14.5 % Platelet Count 257 130-400 10^3/uL Mean Platelet Volume 10.3 9.0-12.2 fL Immature Granulocyte % (Auto) 0 % Neutrophils (%) (Auto) 69 42-75 % Lymphocytes (%) (Auto) 23 12-44 % Monocytes (%) (Auto) 7 0-12 % Eosinophils (%) (Auto) 1 0-10 % Basophils (%) (Auto) 0 0-10 % Neutrophils # (Auto) 5.6 1.8-7.8 10^3/uL Lymphocytes # (Auto) 1.9 1.0-4.0 10^3/uL Monocytes # (Auto) 0.6 0.0-1.0 10^3/uL Eosinophils # (Auto) 0.1 0.0-0.3 10^3/uL Basophils # (Auto) 0.0 0.0-0.1 10^3/uL Immature Granulocyte # (Auto) 0.0 0.0-0.1 10^3/uL Sodium Level 136 135-145 MMOL/L Potassium Level 3.7 3.6-5.0 MMOL/L Chloride Level 99 98-107 MMOL/L Carbon Dioxide Level 26 21-32 MMOL/L Anion Gap 11 5-14 MMOL/L Blood Urea Nitrogen 11 7-18 MG/DL Creatinine 1.00 0.60-1.30 MG/DL Estimat Glomerular Filtration Rate 61 BUN/Creatinine Ratio 11 Glucose Level 107 H 70-105 MG/DL Calcium Level 9.6 8.5-10.1 MG/DL Urine Color YELLOW Urine Clarity CLEAR Urine pH 6.0 5-9 Urine Specific [place] 1.015 L 1.016-1.022 Urine Protein NEGATIVE NEGATIVE Urine Glucose (UA) NEGATIVE NEGATIVE Urine Ketones NEGATIVE NEGATIVE Urine Nitrite NEGATIVE NEGATIVE Urine Bilirubin NEGATIVE NEGATIVE Urine Urobilinogen 0.2 < = 1.0 MG/DL Urine Leukocyte Esterase 1+ H NEGATIVE Urine RBC (Auto) TRACE-I H NEGATIVE Urine RBC RARE /HPF Urine WBC 5-10 H /HPF Urine Squamous Epithelial Cells 25-50 H /HPF Urine Crystals NONE /LPF Urine Bacteria TRACE /HPF Urine Casts NONE /LPF Urine Mucus SMALL H /LPF Urine Culture Indicated YES Micro Results Microbiology 02/05/22 Urine Culture - Final, Complete See Comments My Orders Orders - ROSSANA LUTZ MD Ed Iv/Invasive Line Start (02/05/22 23:08) Cbc With Automated Diff (02/05/22 23:08) Basic Metabolic Panel (02/05/22 23:08) Ua Culture If Indicated (02/05/22 23:08) Urine Culture (02/05/22 23:18) Hydrocodone/Apap 5/325 Tablet (Lortab 5 (02/06/22 00:30) Metronidazole Tablet (Flagyl Tablet) (02/06/22 00:30) Rx-Hydrocodone/Apap 5-325 Mg (Rx-Vicodin (02/06/22 00:30) Vital Signs/I&O 02/05/22 02/06/22 21:30 00:18 Temp 38.0 38.2 Pulse 82 137 Resp 20 28 B/P (MAP) 137/81 (99) Pulse Ox 98 97 O2 Delivery Room Air Room Air Blood Pressure Mean: 99 Progress Progress Note : Time: 00:18 Progress Note Patient reevaluated after labs returned, her CBC, chemistry and urine are all reassuring. Her CBC is completely normal. She continues to have some discomfort in the left lower quadrant. Secondary to history of diverticulitis and this feeling "exactly" the same as prior diverticulitis "flares" and her fever we will go ahead and start her on some Flagyl. I am giving her a dose be fore she leaves as well as a dose of hydrocodone with a take-home pack. I advised the patient that if after a couple of days of the Flagyl she is continuing to have worsening pain, fever, develops watery or bloody stool that she needs to return to the emergency room for reevaluation. Consideration for CT scan today however clinically her symptoms are very mild, history and physic al do not support the need today. She does not have a distended, "acute" abdomen. If she is worsening will reconsider CT to further delineate pathology. Patient is quite comfortable with this plan of care. She will follow-up with her primary care doctor. All questions are sought and answered. Patient is stable for discharge. Departure Impression Primary Impression: Abdominal pain Qualified Codes: R10.32 - Left lower quadrant pain Additional Impression: History of diverticulitis Disposition: HOME, SELF-CARE Condition: Stable Departure-Patient Inst. Decision time for Depature: 00:20 Referrals: KOLTON LR DO (PCP/Family) Primary Care Physician Patient Instructions: Abdominal Pain, Adult ED Add. Discharge Instructions: Take the antibiotics, metronidazole 500 mg tablets 3 times a day for 7 days. I have given you a prescription for hydrocodone, take 1 every 6 hours as needed for severe pain. You can take an additional extra strength Tylenol with the hydrocodone. [place] diet over the next 24 to 48 hours. If you develop worsening fever, pain, bloody stools please come back to the emergency room for reevaluation, CT scan of the abdomen. Follow-up with your primary care provider Scripts Hydrocodone/Acetaminophen (Hydrocodone-Acetamin 5-325 mg) 5 Mg-325 Mg Tablet 1 TAB PO Q6H PRN for PAIN-MODERATE (5-7), #12 TAB Prov: ROSSANA LUTZ MD 02/06/22 Metronidazole (Metronidazole) 500 Mg Tablet 500 MG PO TID for 7 Days, #20 TAB 0 Refills Prov: ROSSANA LUTZ MD 02/06/22 Copy Copies To 1: KOLTON LR KATHRYN M MD Feb 05, 2022 22:58
[2022-02-05 23:26] LABS: BASOPHILS % (AUTO) 0 % (0-10); EOSINOPHILS # (AUTO) 0.1 10^3/uL (0.0-0.3); EOSINOPHILS % (AUTO) 1 % (0-10); HEMATOCRIT 38 % (35-52); HEMOGLOBIN 12.7 g/dL (11.5-16.0); LYMPHOCYTES # (AUTO) 1.9 10^3/uL (1.0-4.0); LYMPHOCYTES % (AUTO) 23 % (12-44); MEAN CORPUSCULAR HEMOGLOBIN 30 pg (25-34); MEAN CORPUSCULAR HGB CONC 33 g/dL (32-36); MEAN CORPUSCULAR VOLUME 91 fL (80-99); MEAN PLATELET VOLUME 10.3 fL (9.0-12.2); MONOCYTES # (AUTO) 0.6 10^3/uL (0.0-1.0); MONOCYTES % (AUTO) 7 % (0-12); NEUTROPHILS # (AUTO) 5.6 10^3/uL (1.8-7.8); NEUTROPHILS % (AUTO) 69 % (42-75); PLATELET COUNT 257 10^3/uL (130-400); WHITE BLOOD COUNT 8.2 10^3/uL (4.3-11.0)
[2022-02-05 23:30] LABS: BILIRUBIN,URINE NEGATIVE (NEGATIVE); CLARITY,URINE CLEAR; COLOR,URINE YELLOW; GLUCOSE, URINE (UA) NEGATIVE (NEGATIVE); KETONES,URINE NEGATIVE (NEGATIVE); LEUKOCYTE ESTERASE ,URINE 1+ (NEGATIVE); NITRITE,URINE NEGATIVE (NEGATIVE); PROTEIN,URINE NEGATIVE (NEGATIVE)
[2022-02-05 23:41] LABS: POTASSIUM 3.7 MMOL/L (3.6-5.0)
[2022-02-05 23:42] LABS: CALCIUM 9.6 MG/DL (8.5-10.1)
[2022-02-05 23:49] LABS: BACTERIA,URINE TRACE /HPF; RBC,URINE RARE /HPF; SQUAMOUS EPITHELIAL CELL,UR 25-50 /HPF
[2022-02-06] MEDS ORDERED: METR-145 PO (00:22)
[2022-02-06] MEDS ORDERED: ACHD5005 PO (00:22)
[2022-02-06] MEDS ORDERED: metroNIDAZOLE 500 MG (FLAGYL) TAB PO ONE (00:30)
[2022-02-06] MEDS ORDERED: HYDROcodone/APAP 5 MG/325 MG (LORTAB) TAB PO ONE (00:30)
== END 2022-02-06 00:34 | disposition home or self-care (01) ==
LOC: EDUNIT# 21:21 → ER 21:23
DX: R10.32 Left lower quadrant pain (principal); Z87.19 Personal history of other diseases of the digestive system
CPT/HCPCS: 36415; 80048; 81000; 85025; 87088; 99283

== ENCOUNTER → 2022-07-28 | Outpatient (CLI) | payer MEDICARE, OTHER ==
[~2022-07-28] MED LIST changes: +ACHD5005 PO; +METR-145 PO
--- NOTE | 2022-07-28 14:09 | Diagnostic Imaging Report ---
INDICATION: Postmenopausal screening COMPARISON: Baseline FINDINGS: AP Spine L1-L4: [BMD (g/cm2): 1.500] [T-Score: 2.5] [Z-Score: 3.4] [BMD Previous: NA] [BMD % Change: NA] LT Hip Neck: [BMD (g/cm2): 0.890] [T-Score: -1.1] [Z-Score: 0.1] LT Hip Total: [BMD (g/cm2):0.967] [T-Score:-0.3] [Z-Score: 0.5] [BMD Previous: NA] [BMD % Change: NA] RT Hip Neck: [BMD (g/cm2):0.864] [T-Score:-1.2] [Z-Score:-0.1] RT Hip Total: [BMD (g/cm2):0.990] [T-score:-0.1] [Z-Score:0.7] [BMD Previous:NA] [BMD % Change:NA] *Indicates significant change from prior examination based on 95% confidence level. World Health Organization criteria for BMD interpretation classify patients as Normal (T-score at or above -1.0), Osteopenic (T-score between -1.0 and -2.5) or Osteoporotic (T-score at or below -2.5). LIMITATIONS AND MODIFICATION: None. FRACTURE RISK (FRAX SCORE): The ten year probability of (%): Major Osteoporotic Fracture: [NA] Hip Fracture: [NA] IMPRESSION: 1. Osteopenia (Low bone mass). 2. Baseline examination. 3. See below National Osteoporosis Foundation guidelines on when to potentially initiate pharmacologic therapy. Based on the National Osteoporosis Foundation Guidelines, pharmacologic treatment should be initiated in any of the following, unless clinical conditions suggest otherwise: * Any patient with prior fragility fracture of the hip or vertebrae. A spine fracture indicates 5X risk for subsequent spine fracture and 2X risk for subsequent hip fracture. * Osteoporosis (T-score <-2.5). * Postmenopausal women and men age 50 and older with low bone mass/osteopenia (T-score between -1.0 and -2.5) by DXA and 10-year major osteoporotic fracture greater than 20% or a 10-year probability of hip fracture greater than 3%. These fracture risks are supplied above in the FRAX score, if applicable. * Clinician judgement and/or patient preferences may indicate treatment for people with 10-year fracture probabilities above or below these levels. Dictated by: Dictated on workstation # [id number]
== END ==
LOC: RAD 11:17
PROVIDERS: ATTEND Pediatrics
DX: Z13.820 Encounter for screening for osteoporosis (principal); M85.80 Other specified disorders of bone density and structure, unspecified site; Z78.0 Asymptomatic menopausal state
CPT/HCPCS: 77080